=== PATIENT | female | born 1985 ===

== ENCOUNTER 2024-11-05 10:29 | Emergency (ER) | payer BC, SELFPAY ==
--- NOTE | 2024-11-05 10:30 | DI.US_ITS ---
Exam(s) US OB 1ST TRIMESTER EXAM: US OB 1ST TRIMESTER CLINICAL HISTORY: Abnormal vaginal bleeding, cramping. TECHNIQUE: First trimester obstetrical ultrasound was performed. COMPARISON: No exams were available for comparison FINDINGS: There is an intrauterine gestational sac which contains a normal appearing yolk sac a 3 mm diameter and viable pole which exhibits heart rate of 103 bpm. [place]-rump length measurement is 5 mm, corresponding to 6 weeks and 2 days gestational age. There is no evidence of subchorionic hemorrhage. Multiple uterine fibroids are noted measuring to 3.2 x 3.4 x 2.4 cm. Maternal ovaries: Right ovary measures 2.4 x 1.5 x 1.7 Left ovary measures 2.5 x 1.6 x 1.7. No significant ovarian findings. There is no fluid in the cul-de-sac and adnexal regions. IMPRESSION:: Single viable intrauterine gestation which is approximately 6 weeks and 2 days gestational age by crown rump length measurement, implying GOMEZ of 06/29/2025, 2020. There is no evidence of subchorionic hemorrhage. However, there are multiple uterine fibroids evident. One of the subserosal fibroids in the anterior myometrium is noted to be slightly indenting the endometrial cavity No abnormal maternal ovarian findings. There is no free fluid evident in the ductal regions nor in the cul-de-sac. DATA REPOSITORY:
[2024-11-05 10:48] VITALS: BP 127/78; PULSE 70; RESP 18; TEMP 37.1; O2SAT 98
[2024-11-05 11:44] LABS: Abs Immature Grans 0.05 10^3/uL (0.0-0.06); HCT 37.4 % (36.0-46.0); HGB 12.6 g/dL (11.2-15.7); Immature Grans % 0.5 %; MCH 30.7 pg (27.0-33.0); MCHC 33.7 % (32.0-36.0); MCV 91 fL (80-95); MPV 9.5 fL (8.0-11.0); Platelet Count 270 10^3/uL (130-400); RBC 4.11 10^6/uL (3.93-5.22); RDW 12.0 % (11.7-14.6); RDW-SD 39.8 fL; WBC 9.16 10^3/uL (4.4-10.8)
[2024-11-05 12:02] LABS: ALT 44 U/L (14-59); AST 24 U/L (15-37); Albumin 3.3 g/dL (3.4-5.0); Alkaline Phosphatase 84 U/L (46-116); Anion Gap 7.6 mmol/L (3-11); BUN 11 mg/dL (7-18); Bilirubin, Total 0.2 mg/dL (0.2-1.0); CO2 27.4 mmol/L (21.0-32.0); Calcium 9.2 mg/dL (8.5-10.1); Chloride 102 mmol/L (98-107); Estimated GFR 111.36 (mL/min/1.73m2); Glucose 121 mg/dL (74-106); Potassium 3.9 mmol/L (3.5-5.1); Sodium 137 mmol/L (136-145); Total Protein 7.4 g/dL (6.4-8.2)
[2024-11-05] MEDS: Normal Saline 500 ML IV (12:04)
--- NOTE | 2024-11-05 12:59 | W.ED.GENAD ---
Discharge Plan Disposition Patient Disposition: Home Condition: Stable Discharge Details Clinical Impression: Vaginal bleeding affecting early , Miscarriage, threatened, early , Uterine fibroid during , antepartum Primary Care Provider: Hazel,Local ED Provider: Viji Perez Home Meds and New Rx's Prescriptions: No Action levothyroxine 100 mcg capsule 100 mcg PO DAILY sertraline 100 mg tablet 100 mg PO DAILY progesterone 50 mg/mL oil 75 mg IM QDAY estradiol [Estrace] 2 mg tablet 2 mg PO DAILY aspirin 81 mg tablet 81 mg PO DAILY estrogen patch 0.1 mg Rx Instructions: 4 patches every other day prenantal vitamin 1 tab Discharge Instructions Instructions: Uterine Fibroids (DC), Bleeding in Early ED Additional Instructions: At this time the ultrasound shows 6-week and 2-day gestational age implying estimated date of delivery 06/29/2025. Heart rate [place] 103[place] [address] today. The ultrasound also shows that you have multiple uterine fibroids. Please see the report and disc discussed that with your [facility] and fertility team. Your cervical os appears closed you did have a very small amount of bleeding from the cervical os. No heavy lifting, please drink lots of fluids. Follow up with [facility]/primary care provider in 3-5 days. Return to ED sooner if any worsening bleeding, dizziness lightheadedness, abdominal pain soaking through more than 2 pads an hour or concerns. Please discuss with your [facility] team medications that are safe to you to take during . Thank you for allowing us to care for you today. Discharge Data Discharge Date/Time-TO BE ENTERED AT DEPARTURE: 11/05/24 15:07 HPI General Mode of arrival: ambulatory. Date/Time Provider Initiated Documentation: 11/05/24 10:42. Limitations to Documentation: no limitations. Information obtained by: patient, RN notes reviewed and old records reviewed. HPI Narrative: 39-year-old female presents to the ER with abnormal vaginal bleeding which she noticed this morning. Patient is approximately 6 weeks . She is undergoing IVF, she is 4 P0 AB 3. Is here visiting from [place] and out of town. She states that she noticed some bleeding upon wakening and that she had a clot approximately 3 cm in size. She reports some mild spotting over the last couple of days and some cramping. Denies any problems urinating no dysuria denies any nausea vomiting diarrhea or fever. Related Data Home Medications ?Medication ?Instructions ?Recorded ?Confirmed aspirin 81 mg tablet 81 mg PO DAILY 11/05/24 11/05/24 estradiol 2 mg tablet (Estrace) 2 mg PO DAILY 11/05/24 11/05/24 estrogen patch 0.1 mg 11/05/24 levothyroxine 100 mcg capsule 100 mcg PO DAILY 11/05/24 11/05/24 prenantal vitamin 1 tab 11/05/24 progesterone 50 mg/mL 75 mg IM QDAY 11/05/24 11/05/24 intramuscular oil sertraline 100 mg tablet 100 mg PO DAILY 11/05/24 11/05/24 Allergies Allergy/AdvReac Type Severity Reaction Status Date / Time clindamycin Allergy Skin Rash Verified 11/05/24 10:54 Penicillins Allergy Skin Rash Verified 11/05/24 10:54 General Stated Complaint: [facility] JOSE G: 3 Review of Systems All systems reviewed & are unremarkable except as noted in HPI and below Genitourinary Genitourinary: Reports as per HPI and Reports other (Vaginal bleeding, abdominal cramping) Exam Narrative Exam Narrative: Constitutional: Alert and oriented x3. Appears stated age. Normal body habitus. Head: Normocephalic, no trauma. Eyes: Pupils PERRL, Eyelids symmetrical without lesions, discharge, or swelling. Chest: RRR, Normal S1, S2, distal pulses intact. Resp: Lungs clear to auscultation bilaterally, no wheezes, rales, or rhonchi. Abdomen: Soft, non-distended, tenderness to suprapubic bilaterally with palpation. : See below Musculoskeletal: Normal gait, Moves all 4 extremities without difficulty. Skin: No suspicious rashes or lesions. Capillary refill less than 2 sec. General: deferred External Female Exam: normal external appearance Speculum Exam - Vagina: normal appearance of the vagina, abnormal vaginal discharge (Small amount of bloody ooze noted from the cervical os, cervical os is clos) bloody and No vaginal bleeding Speculum Exam - Cervix: closed Bimanual Exam- Vagina & Uterus: uterine size normal OB/External & Speculum: external exam normal, No vaginal bleeding and No vaginal discharge Course Vital Signs Vital signs: Vital Signs Temperature 37.1 C 11/05/24 10:48 Pulse 70 11/05/24 10:48 Respiratory Rate 18 11/05/24 10:48 Blood Pressure 127/78 11/05/24 10:48 Pulse Oximetry 98 11/05/24 10:48 Temperature 37.1 C 11/05/24 10:48 Temperature Source Oral 11/05/24 10:48 Pulse 70 11/05/24 10:48 Respiratory Rate 18 11/05/24 10:48 Blood Pressure 127/78 11/05/24 10:48 Pulse Oximetry 98 11/05/24 10:48 Pain Level 2 11/05/24 11:07 Lab/Test Results Lab/Test Results: Laboratory Tests Range/Units 11/05/24 11:25 WBC (4.4-10.8) 10^3/uL 9.16 RBC (3.93-5.22) 10^6/uL 4.11 Hgb (11.2-15.7) g/dL 12.6 Hct (36.0-46.0) % 37.4 MCV (80-95) fL 91 MCH (27.0-33.0) pg 30.7 MCHC (32.0-36.0) % 33.7 RDW (11.7-14.6) % 12.0 Plt Count (130-400) 10^3/uL 270 MPV (8.0-11.0) fL 9.5 Immature Gran % % 0.5 Neutrophils % % 80.4 Lymphocytes % % 14.0 Monocytes % % 3.4 Eosinophils % % 1.4 Basophils % % 0.3 Nucleated RBC % (0.0-0.3) % 0.0 Absolute Neutrophils (1.2-6.7) 10^3/uL 7.36 H Absolute Lymphocytes (1.2-3.4) 10^3/uL 1.28 Absolute Monocytes (0.1-0.8) 10^3/uL 0.31 Absolute Eosinophils (0.0-0.7) 10^3/uL 0.13 Absolute Basophils (0.0-0.2) 10^3/uL 0.03 Sodium (136-145) mmol/L 137 Potassium (3.5-5.1) mmol/L 3.9 Chloride (98-107) mmol/L 102 Carbon Dioxide (21.0-32.0) mmol/L 27.4 Anion Gap (3-11) mmol/L 7.6 BUN (7-18) mg/dL 11 Creatinine (0.55-1.02) mg/dL 0.7 Est GFR (CKD-EPI 2020) (mL/min/1.73m2) 111.36 Glucose (74-106) mg/dL 121 H Calcium (8.5-10.1) mg/dL 9.2 Total Bilirubin (0.2-1.0) mg/dL 0.2 AST (15-37) U/L 24 ALT (14-59) U/L 44 Alkaline Phosphatase (46-116) U/L 84 Total Protein (6.4-8.2) g/dL 7.4 Albumin (3.4-5.0) g/dL 3.3 L Medical Decision Making 39-year-old female presents to the ER with abnormal vaginal bleeding which she noticed this morning. Patient is approximately 6 weeks . She is undergoing IVF, she is 4 P0 AB 3. Is here visiting from [place] and out of town. She states that she noticed some bleeding upon wakening and that she had a clot approximately 3 cm in size. She reports some mild spotting over the last couple of days and some cramping. Denies any problems urinating no dysuria denies any nausea vomiting diarrhea or fever. 1259: Spoke with therapy technician Cuong regarding the preliminary result, single IUP noted no ectopic or free fluid, of note heart rate is low at 103. Also noted uterine fibroids, please see official report. Pending Rh type. CBC shows no leukocytosis H&H within normal limits absolute neutrophils 7.36 glucose 121 albumin 3.3 beta-hCG is also pending at this time. Ultrasound result preliminarily shows multiple fibroids, 3.2 x 3.4 x 2.4 fundus single IUP with heart rate of 103 bpm, bradycardic. EDC 06/29/2025, 5 mm CRL 3 mm yolk sac, please see official report. Patient has already had RhoGAM injection for this approximately week and a half ago. Will perform pelvic exam to observe cervix. Pelvic exam performed with Cam leslie, patient tolerated well. Please see exam, cervical os is closed there is a small bloody ooze noted. No other discharge or lesions noted. Will give patient a disc of her ultrasound and the results as she is from out of town and I did discuss home care, strict follow-up with her [facility] in [place]. Patient remained hemodynamically stable throughout the remainder of her stay she was ambulatory upon discharge and with her family. All their questions were answered to the best my ability. A disk from radiology was given to her and printout of the ultrasound result. This text was generated using [employer] system, please disregard any oddities of phrase or misspellings. Lab Data Lab results reviewed: Yes I reviewed the patient's lab results. Labs: Laboratory Tests Range/Units 11/05/24 11:25 WBC (4.4-10.8) 10^3/uL 9.16 RBC (3.93-5.22) 10^6/uL 4.11 Hgb (11.2-15.7) g/dL 12.6 Hct (36.0-46.0) % 37.4 MCV (80-95) fL 91 MCH (27.0-33.0) pg 30.7 MCHC (32.0-36.0) % 33.7 RDW (11.7-14.6) % 12.0 Plt Count (130-400) 10^3/uL 270 MPV (8.0-11.0) fL 9.5 Immature Gran % % 0.5 Neutrophils % % 80.4 Lymphocytes % % 14.0 Monocytes % % 3.4 Eosinophils % % 1.4 Basophils % % 0.3 Nucleated RBC % (0.0-0.3) % 0.0 Absolute Neutrophils (1.2-6.7) 10^3/uL 7.36 H Absolute Lymphocytes (1.2-3.4) 10^3/uL 1.28 Absolute Monocytes (0.1-0.8) 10^3/uL 0.31 Absolute Eosinophils (0.0-0.7) 10^3/uL 0.13 Absolute Basophils (0.0-0.2) 10^3/uL 0.03 Sodium (136-145) mmol/L 137 Potassium (3.5-5.1) mmol/L 3.9 Chloride (98-107) mmol/L 102 Carbon Dioxide (21.0-32.0) mmol/L 27.4 Anion Gap (3-11) mmol/L 7.6 BUN (7-18) mg/dL 11 Creatinine (0.55-1.02) mg/dL 0.7 Est GFR (CKD-EPI 2020) (mL/min/1.73m2) 111.36 Glucose (74-106) mg/dL 121 H Calcium (8.5-10.1) mg/dL 9.2 Total Bilirubin (0.2-1.0) mg/dL 0.2 AST (15-37) U/L 24 ALT (14-59) U/L 44 Alkaline Phosphatase (46-116) U/L 84 Total Protein (6.4-8.2) g/dL 7.4 Albumin (3.4-5.0) g/dL 3.3 L Beta HCG, Quant (1-3) mIU/mL 42542 H PFSH All Active Problems (Updated 11/05/24 @ 14:18 by Viji Perez NP) Uterine fibroid during , antepartum (Acute) Miscarriage, threatened, early (Acute) Vaginal bleeding affecting early (Acute) Social History Smoking/Tobacco Use Status: Never Smoking risk assessment performed?: Yes Alcohol Intake: never Substance use type: does not use Housing: apartment
[2024-11-05] MEDS: Acetaminophen 500 MG TAB 1000 MG PO (14:25)
== END 2024-11-05 15:07 | disposition home or self-care (01) ==
PROVIDERS: Emergency Provider Registered Nurse Emergency
DX: O20.0 Threatened abortion (principal); O09.811 Supervision of pregnancy resulting from assisted reproductive technology, first trimester; O34.11 Maternal care for benign tumor of corpus uteri, first trimester; D25.9 Leiomyoma of uterus, unspecified; Z3A.01 Less than 8 weeks gestation of pregnancy; Z79.82 Long term (current) use of aspirin
CPT/HCPCS: 36415; 80053; 86900; 86901; 96360; 96361; 99284; 76801; 84702; 85025